=== PATIENT | female | born 1935 | race American Indian/Alaskan Native ===

== ENCOUNTER 2020-12-05 10:06 | Emergency (ER) | payer MEDICARE ==
--- NOTE | 2020-12-05 11:05 | Emergency Department Report ---
ED General Adult HPI - General Chief complaint: Dizziness Stated complaint: HEAD/FACE/STOMACH/LIGH HEAD Time Seen by Provider: 12/05/20 10:43 Source: patient Mode of arrival: Ambulatory Limitations: No Limitations - History of Present Illness Initial comments: 85-year-old female, history of hypertension, chronic back pain, breast cancer status post right mastectomy, presents to ED with headache and abdominal pain since yesterday. Patient states both of the headache and abdominal pain have been intermittent, coming and going. She reports pain to the back of her head that radiates to the forehead and into her face. Patient states she thought she may have a sinus infection. She denies any fever, congestion, runny nose, or neck pain. Patient states abdominal pain has been located diffusely. She reports associated nausea and vomiting. Patient denies any diarrhea, urinary symptoms. -: days(s) (1) Location: head, abdomen Quality: aching Consistency: intermittent Improves with: none Worsens with: none Associated Symptoms: headaches, nausea/vomiting. denies: chest pain, cough, fever/chills, shortness of breath Treatments Prior to Arrival: NSAID - Related Data Previous Rx's Medication Instructions Recorded Last Taken Type Amoxicillin [Amoxicillin TAB] 875 mg PO BID 5 Days #10 tablet 12/05/20 Unknown Rx Butalb/Acetamin/Caff 50-325-40 1 tab PO Q6HR PRN #10 tab 12/05/20 Unknown Rx [Fioricet] Allergies Allergy/AdvReac Type Severity Reaction Status Date / Time No Known Allergies Allergy Unverified 12/05/20 10:21 ED Review of Systems ROS: Stated complaint: HEAD/FACE/STOMACH/LIGH HEAD Other details as noted in HPI Comment: All other systems reviewed and negative Constitutional: denies: chills, fever ENT: denies: congestion Respiratory: denies: cough, shortness of breath Cardiovascular: denies: chest pain Gastrointestinal: abdominal pain, nausea, vomiting. denies: diarrhea Neurological: headache ED Past Medical Hx - Past Medical History Previous Medical History?: Yes Hx Hypertension: Yes - Medications Home Medications: Home Medications Medication Instructions Recorded Confirmed Last Taken Type Amoxicillin [Amoxicillin TAB] 875 mg PO BID 5 Days #10 tablet 12/05/20 Unknown Rx Butalb/Acetamin/Caff 50-325-40 1 tab PO Q6HR PRN #10 tab 12/05/20 Unknown Rx [Fioricet] ED Physical Exam - General Limitations: No Limitations General appearance: alert, in no apparent distress - Head Head exam: Present: atraumatic, normocephalic - Eye Eye exam: Present: normal appearance, EOMI - ENT ENT exam: Present: mucous membranes moist, other (No sinus tenderness) - Neck Neck exam: Present: normal inspection, full ROM. Absent: tenderness, meningismus - Respiratory Respiratory exam: Present: normal lung sounds bilaterally. Absent: respiratory distress - Cardiovascular Cardiovascular Exam: Present: regular rate, normal rhythm - GI/Abdominal GI/Abdominal exam: Present: soft. Absent: distended, tenderness - Extremities Exam Extremities exam: Present: normal inspection - Neurological Exam Neurological exam: Present: alert, oriented X3 - Psychiatric Psychiatric exam: Present: normal affect, normal mood - Skin Skin exam: Present: warm, dry, intact, normal color ED Course Vital Signs 12/05/20 12/05/20 12/05/20 10:14 11:52 12:47 Temperature 98.6 F Pulse Rate 90 75 88 Respiratory 20 17 12 Rate Blood Pressure 151/85 Blood Pressure 159/80 141/87 [Right] O2 Sat by Pulse 99 98 99 Oximetry 12/05/20 13:34 Temperature Pulse Rate 80 Respiratory 14 Rate Blood Pressure Blood Pressure 164/83 [Right] O2 Sat by Pulse 98 Oximetry ED Medical Decision Making - Lab Data Result diagrams: 12/05/20 11:02 12/05/20 11:02 - EKG Data -: EKG Interpreted by Ne EKG shows normal: sinus rhythm, axis, intervals, QRS complexes, ST-T waves Rate: normal - EKG Data Interpretation: no acute changes - Radiology Data Radiology results: report reviewed, image reviewed - Medical Decision Making 85-year-old female presents to ED with headache and abdominal pain. Vital signs unremarkable except for mildly elevated blood pressure. No neuro deficits on exam. Labs are normal except for UA which shows UTI. CT head shows evidence of sinusitis. Patient without any sinus tenderness on exam, however we will go ahead and treat with antibiotics. Patient will be discharged at this time. Will give prescription for Fioricet as well. Outpatient follow-up advised, return precautions given. - Differential Diagnosis Intracranial abnormality, UTI, bowel obstruction Critical care attestation.: If time is entered above; I have spent that time in minutes in the direct care of this critically ill patient, excluding procedure time. ED Disposition Clinical Impression: Headache, Sinus infection, Abdominal pain, UTI (urinary tract infection) Disposition: 01 HOME / SELF CARE / HOMELESS Is pt being admited?: No Condition: Stable Instructions: Sinusitis, Adult, [id number], Urinary Tract Infection, Adult, [id number]-[id number], Abdominal Pain, Adult, [id number] Prescriptions: Amoxicillin [Amoxicillin TAB] 875 mg PO BID 5 Days #10 tablet Butalb/Acetamin/Caff 50-325-40 [Fioricet] 1 tab PO Q6HR PRN #10 tab PRN Reason: Headache Referrals: ANGELICA MCLEOD MD [Primary Care Provider] - 3-5 Days Time of Disposition: 13:05
[2020-12-05 11:40] LABS: Alanine Aminotransferase 11 units/L (7-56); Albumin 4.1 g/dL (3.9-5); BUN/Creatinine Ratio 16; Bilirubin,Direct < 0.2 mg/dL (0-0.2); Blood Urea Nitrogen 11 mg/dL (7-17); Calcium 9.6 mg/dL (8.4-10.2); Hemolysis Index 6
--- NOTE | 2020-12-05 11:55 | XRay Report ---
ABDOMEN 4 VIEW(S) INDICATION / CLINICAL INFORMATION: vomiting. COMPARISON: None available. FINDINGS: TUBES / LINES: None. BOWEL GAS PATTERN: No significant abnormality. FREE AIR / EXTRALUMINAL GAS: None seen. ADDITIONAL FINDINGS: Surgical clips right axilla. IMPRESSION: 1. No significant abnormality. Signer Name: Benjamin Garcia MD Signed: 12/05/2020 11:51 AM Workstation Name: [id number]
[2020-12-05 12:09] LABS: Bacteria,Urine 4+ /HPF (Negative); Bilirubin,Urine NEG (Negative); Blood,Urine NEG (Negative); Color,Urine Yellow (Yellow); Mucus,Urine FEW /HPF
[2020-12-05 12:14] LABS: Basophils # (Auto) 0.1 K/mm3 (0.0-0.1); Basophils % (Auto) 0.8 % (0.0-1.8); Eosinophils # (Auto) 0.3 K/mm3 (0.0-0.4); Eosinophils % (Auto) 3.6 % (0.0-4.3); Hematocrit 33.9 % (30.3-42.9); Hemoglobin 11.9 gm/dl (10.1-14.3); Lymphocytes # (Auto) 1.5 K/mm3 (1.2-5.4); Lymphocytes % (Auto) 17.8 % (13.4-35.0); Mean Corpuscular HGB Conc 35 % (30-34); Mean Corpuscular Volume 93 fl (79-97); Monocytes # (Auto) 0.6 K/mm3 (0.0-0.8); Monocytes % (Auto) 7.5 % (0.0-7.3); Platelet Count 337 K/mm3 (140-440); Red Blood Count 3.65 M/mm3 (3.65-5.03); Red Cell Distribution Width 15.9 % (13.2-15.2)
--- NOTE | 2020-12-05 12:33 | Cat Scan Report ---
CT head/brain wo con INDICATION / CLINICAL INFORMATION: 85 years Female; headache. TECHNIQUE: Routine CT head without contrast. All CT scans at this location are performed using CT dos e reduction for ALARA by means of automated exposure control. COMPARISON: None. FINDINGS: BRAIN / INTRACRANIAL CONTENTS: No acute hemorrhage, mass effect, midline shift, hydrocephalus, or acu te, large territorial infarct. Jgaq-ed-krlvirhl, diffuse cerebral and cerebellar atrophy. There are minimal areas of decreased attenuation in the white matter of the cerebral hemispheres. The se are nonspecific findings and may be related to microangiopathy (hypertension, diabetes, atheroscle rosis), given the patient's age. It might be difficult to evaluate for small areas of ischemia withou t diffusion imaging by MRI. CRANIOCERVICAL JUNCTION: No significant abnormality. ORBITS: No significant abnormality of visualized orbits. SINUSES / MASTOIDS: Partial opacification seen in the mid and posterior ethmoids on the left. Small m ucous retention cyst/polyps seen in both maxillary antra, as well as the left sphenoid sinus. Minimal polypoid disease suggested in the left nasal airway as well. ADDITIONAL FINDINGS: Atherosclerotic disease is seen in the anterior circulation. IMPRESSION: 1. No focal mass, hemorrhage, hydrocephalus, or acute, large territorial infarct. 2. Sinus disease noted. Signer Name: Rich Yao MD, III Signed: 12/05/2020 12:29 PM Workstation Name: [id number]
--- NOTE | 2020-12-05 12:37 | Cat Scan Report ---
CT ABDOMEN AND PELVIS WITH CONTRAST HISTORY: abd pain Omni 300 100ml COMPARISON: None. TECHNIQUE: Axial CT images were obtained through the abdomen and pelvis after 100 cc of Omnipaque 300 IV contrast. Sagittal and coronal reformatted images. All CT scans at this location are performed us ing CT dose reduction for ALARA by means of automated exposure control. FINDINGS: CT ABDOMEN: Lung Bases: Clear. Right mastectomy changes are partially imaged. Heart size is normal. Liver: There is mild fatty infiltration throughout the liver. No enlargement or mass. Biliary: No significant abnormality. Spleen: No significant abnormality. Unenlarged. Pancreas: There is a 1.8 cm exophytic cyst from the body of the pancreas. There is also a 1.2 cm cyst in the tail of the pancreas. No obvious pancreatic mass, inflammatory changes or pseudocyst. Adrenals: No significant abnormality. Kidneys: The left kidney is severely atrophic measuring 5-6 cm in length. No hydronephrosis. There is mild compensatory enlargement of the right kidney. A 2.9 cm simple cyst is noted at the inferior sherley e. No mass or hydronephrosis. Lymphatics: No lymphadenopathy. Vasculature: No significant abnormality. Bowel/Peritoneum: No significant abnormality. No free air. No free fluid. Normal appendix. CT PELVIS: : The uterus, ovaries and bladder are unremarkable. Osseous Structures: Mild osteopenia is suspected. No evidence for acute fracture or suspicious bony l esion. Additional Findings: Small uncomplicated umbilical hernia containing fat is noted. IMPRESSION: No acute process is identified in the abdomen or pelvis. Mild hepatic steatosis. Advanced atrophy of the left kidney. Simple appearing right renal cyst. Benign appearing pancreatic cysts as described. Small umbilical hernia containing fat. Signer Name: Josue Parker Jr, MD Signed: 12/05/2020 12:32 PM Workstation Name: [id number]
[2020-12-05] MEDS ORDERED: IBUPROFEN 800 MG TAB PO ONE (12:52)
[2020-12-05] MEDS ORDERED: traMADol 50 MG TAB PO ONE (12:52)
[2020-12-05 13:35] VITALS: BP 164/83
--- NOTE | 2020-12-07 17:28 | Electrocardiograph Report ---
[facility] Test Date: 2020-12-05 Test Time: 10:40:32 Pat Name: JENELLE SANDOVAL Department: Room: Gender: F [employer] Developer: DANE : [id number] Requested By: EMMIE MA Order Number: [id number] Reading MD: Sangita Dewey Measurements Intervals Peculiar Rate: 80 P: 40 SD: 182 QRS: 10 QRSD: 99 T: 26 QT: 378 QTc: 436 Interpretive Statements Sinus rhythm No previous ECG available for comparison Electronically Signed On 12-07-2020 17:27:52 EDT by Sangita Dewey
== END 2020-12-05 13:35 | disposition home or self-care (01) ==
LOC: ED 10:06
DX: J32.9 Chronic sinusitis, unspecified (principal); N39.0 Urinary tract infection, site not specified; R10.9 Unspecified abdominal pain; I10 Essential (primary) hypertension; Z79.899 Other long term (current) drug therapy
CPT/HCPCS: 36415; 70450; 74022; 74177; 80048; 80076; 81001; 83690; 84484; 85025; 87086; 93005; 99284; Q9967